=== PATIENT | female | born 1975 ===

== ENCOUNTER 2017-01-08 15:47 | Emergency (ER) | payer SELFPAY ==
[2017-01-08 13:14] VITALS: BMI 46.5
[2017-01-08 15:55] VITALS: BP 112/67; PULSE 70; RESP 18; TEMP 96.7; O2SAT 99
--- NOTE | 2017-01-08 16:51 | ED PDOC ---
Upper Extremity Pain/Injury Time Seen by Provider: 01/08/17 15:56 Chief Complaint (Nursing): Abdominal Pain Chief Complaint (Provider): Left Shoulder Injury/Wound Check History Per: Patient History/Exam Limitations: no limitations Current Symptoms Are (Timing): Still Present Additional Complaint(s): Sravani Chen is a 41 year old female that presents to the ED with left shoulder pain that began when she was getting out of an [employer] and it started to move as she was exiting, causing her to fall face-down and land with her arms out. Patient reports that since then she has been experiencing pain deep in her left shoulder that is worse with movement. She denies any numbness, tingling, head injury, or a lesion at site of injury. Patient additionally states that she has a drain in her abdomen for large hepatic cyst, and is concerned that something may have happened to it, though she denies any pain or bleeding at that site. [facility] Past Medical History Reviewed: Historical Data, Nursing Documentation, Vital Signs Vital Signs: Last Vital Signs Temp 96.7 F L 01/08/17 15:51 Pulse 70 01/08/17 15:51 Resp 18 01/08/17 15:51 BP 112/67 01/08/17 15:51 Pulse Ox 99 01/08/17 15:51 - Medical History PMH: Gall Bladder Disease - Surgical History Other surgeries: Abdominal surgery to place drain - Family History Family History: States: No Known Family Hx - Social History Current smoker - smoking cessation education provided: No Alcohol: None - Allergies Allergies/Adverse Reactions: Allergies Allergy/AdvReac Type Severity Reaction Status Date / Time No Known Allergies Allergy Verified 01/08/17 13:15 Review of Systems ROS Statement: Except As Marked, All Systems Reviewed And Found Negative (and as per HPI) Gastrointestinal: Positive for: Other (Wound check for abdominal drain) Musculoskeletal: Positive for: Shoulder Pain (left shoulder) Physical Exam - Reviewed Nursing Documentation Reviewed: Yes Vital Signs Reviewed: Yes - Physical Exam Appears: Positive for: Non-toxic, No Acute Distress Head Exam: Positive for: ATRAUMATIC, NORMOCEPHALIC Skin: Positive for: Warm, Dry Eye Exam: Positive for: EOMI, PERRL Neck: Positive for: Painless ROM, Supple Cardiovascular/Chest: Positive for: Regular Rate, Rhythm, Chest Non Tender. Negative for: Murmur Respiratory: Positive for: Normal Breath Sounds. Negative for: Wheezing, Respiratory Distress Pulses-Radial (L): 2+ (with <2 sec CR.) Gastrointestinal/Abdominal: Positive for: Bowel Sounds, Soft, Other (RIGHT drain in place entering at RUQ with no erythema or obvious displacement. No tenderness at entry site. Dark brown fluid visible in bulb.). Negative for: Tenderness, Mass, Distended, Guarding Back: Positive for: Normal Inspection. Negative for: Vertebral Tenderness Extremity: Positive for: Other (LEFT shoulder: No deformity or swelling. FROM but illicits pain. Tenderness to deep palpation anterior shoulder ligaments, but no bony tenderness. Strength 5/5 in all nerve distribuations of the hand. Light touch intact.) Neurologic/Psych: Positive for: Alert. Negative for: Motor/Sensory Deficits - ECG O2 Sat by Pulse Oximetry: 99 (RA) Pulse Ox Interpretation: Normal Medical Decision Making Medical Decision Making: Impression: Left Shoulder Injury/Wound Check Plan: * X-Ray Left Shoulder * Toradol 30 mg IM * Urine dip * Urine * Reevaluation * * LEFT shoulder: No fx/dislocation Scribe Attestation: Documented by Kelsi Ricketts, acting as a scribe for Gauri Jaime MD. Provider Scribe Attestation: All medical record entries made by the Scribe were at my direction and personally dictated by me. I have reviewed the chart and agree that the record accurately reflects my personal performance of the history, physical exam, medical decision making, and the department course for this patient. I have also personally directed, reviewed, and agree with the discharge instructions and disposition. Disposition - Clinical Impression Clinical Impression: Shoulder strain, Encounter for post surgical wound check Counseled Patient/Family Regarding: Studies Performed, Diagnosis, Need For Followup - Disposition Referrals: [facility] [Outside] - 01/12/17 Disposition: Routine/Home Disposition Time: 17:20 Condition: STABLE Instructions: Rotator Cuff Injury (ED), Reyes-Farooq Drain Care (ED) Print Language: TUNISIAN
--- NOTE | 2017-01-08 17:28 | RAD ---
PROCEDURE: Radiographs of the Left Shoulder HISTORY: shoulder LEFT Pain. No history of recent/ related trauma provided COMPARISON: No prior. FINDINGS: BONES: Normal. No fracture. JOINTS: Normal. Glenohumeral and acromioclavicular joints preserved. No osteoarthritis. SOFT TISSUES: Normal. OTHER FINDINGS: None. IMPRESSION: No acute findings related to/accounting for the clinical presentation. No preliminary report provided by emergency department personnel.
== END 2017-01-08 19:13 | disposition home or self-care (01) ==
LOC: H.ER 15:47
DX: S46.912A Strain of unspecified muscle, fascia and tendon at shoulder and upper arm level, left arm, initial encounter (principal); W19.XXXA Unspecified fall, initial encounter; Y92.89 Other specified places as the place of occurrence of the external cause
CPT/HCPCS: 73030; 81025; 96372; 99283; J1885